=== PATIENT | female | born 1990 | race Caucasian/White ===

== ENCOUNTER 2024-03-08 14:10 | Inpatient (IN) | payer OTHER ==
[~2024-03-08] VITALS: Ht 165.1 cm; Wt 111.4 kg
[2024-03-10] VITALS (28 sets, daily range): BP systolic 114–160; BP diastolic 56–89; PULSE 67–88; TEMP 97.9–98.2
--- NOTE | 2024-03-10 06:35 | NUR ---
PT AMBULATORY WITH SPOUSE ON UNIT, PT CHANGED INTO HOSPITAL GOWN AND ORIENTED TO ROOM. TOCO AND EFM ON PT FOR MONITORING, THIS RN ORIENTS PT TO LABOR AND DELIVERY PLAN OF CARE AT THE MOMENT. PT REPORTS FEELING IRREGULAR CONTRACTIONS OCCATIONALLY AND HARD TO TIME, PT DENIES PAIN, DENIES VAGINAL BLEEDING/SPOTTING, DENIES LEAKING OF FLUID, AND REPORTS POSITIVE MOVEMENT. EFM SHOWS CATAGORY 1 WITH BASELINE 130'S, MODERATE VARIABILITY, ADEQUATE ACCELS, NO DECELS, AND CTX 6-10 MIN LASTING 120-190 SEC. IV STARTED ON PT RIGHT HAND, PT REPOSITIONED COMFORTABLY, PT VS STABLE, PT AWAKE AND ORIENTED X3
[2024-03-10] MEDS ORDERED: LR 1,000 ML IV SCH ×2 (06:45→07:30)
[2024-03-10] MEDS ORDERED: PRENATAL TABLET PO (06:54)
[2024-03-10] MEDS ORDERED: LR & Oxytocin 500 ML IV SCH (07:30)
[2024-03-10 08:04] LABS: BASO % 0.3 % (0.0-2.0); EOS # 0.2 K/mm3 (0.0-0.7); EOS % 1.6 % (0.0-4.0); GRAN # 8.7 K/mm3 (1.4-6.5); GRAN % 73.9 % (42.2-75.2); HEMATOCRIT 37.1 % (37.0-47.0); HEMOGLOBIN 13.1 g/dl (12.5-16.0); LYMPH # 1.7 K/mm3 (1.2-3.4); LYMPH % 14.6 % (20.0-51.0); MEAN CELL VOLUME 85 fl (80.0-100.0); MEAN CORPUSCULAR HEMOGLOBIN 30 pg (27-31); MEAN CORPUSCULAR HGB CONC 35 g/dl (33.0-37.0); MEAN PLATELET VOLUME 10.5 fl (7.4-10.4); MONO # 1.1 K/mm3 (0.1-0.6); MONO % 8.9 % (1.7-9.3); PLATELET COUNT 231 K/mm3 (130-400); RED BLOOD COUNT 4.39 M/mm3 (4.10-5.30); REDCELL DISTRIBUTION WIDTH-CV 12.7 % (11.5-14.5)
[2024-03-10] MEDS ORDERED: ROPivacaine PF 0.2% 200 ML IV ONE (09:45)
--- NOTE | 2024-03-10 10:08 | NUR ---
0955 ALISE SANTACRUZ AT PT BEDSIDE, PT SITTING AT EDGE OF BED SITTING UPRIGHT, BEDSIDE TABLE CLEANED FOR EDPIDURAL SUPPLIES. ALISE SANTACRUZ EDUCATES PT ON EPIDURAL PROCEDURE, PT VS STABLE, EFM CAT 1, PT AWAKE AND ORIENTED X3. SPOUSE SUPPORTIVE AT BEDSIDE. 1008 TEST DOSE ADMINISTERED PER ALISE SANTACRUZ, PT TOLERATED WELL. PT REPOSITIONED WEDGE RIGHT AND COMFORTABLE. PT STABLE AND AWAKE AND ORIENTED X3. THIS RN REMAINS AT PT BEDSIDE TO MONITOR.
[2024-03-10] MEDS ORDERED: Naloxone 0.4 MG/ML VIAL IV PRN ×2 (10:30→12:15)
[2024-03-10] MEDS ORDERED: diphenhydrAMINE 25 MG CAP PO PRN (10:30)
[2024-03-10] MEDS ORDERED: Ondansetron 4 MG/2 ML VIAL IV PRN (10:30)
[2024-03-10] MEDS ORDERED: ePHEDrine 50 MG/10 ML VIAL IV PRN (10:30)
[2024-03-10] MEDS ORDERED: diphenhydrAMINE 50 MG/ML 1 ML VIAL IV PRN (10:30)
--- NOTE | 2024-03-10 11:58 | NUR ---
1158 SVE PER THIS RN /+3. DUE TO BABY'S LOW STATION THIS RN STOPS PITOCIN. CHARGE NURSE, NURSERY NURSE, AND NOTIFIED. ROOM AND BED SET FOR DELIVERY, PT SPOUSE AT BEDSIDE, PT IN PUSHING POSITION IN [facility]. PT VS STABLE, AWAKE AND ORIENTED X3, FHR BASELINE 125'S, NO ACCELS, AUDIBLE EARLY DECELS 1202 AT PT BEDSIDE, BED BROKEN DOWN FOR DELIVERY, CHARGE NURSE AND NURSERY NURSE IN ROOM. PT BEGINS PUSHING 1204 OF VIABLE MALE PER . CORD CLAMPED AND CUT PER , BABY MOVED TO MATERNAL CHEST AND CARE ASSUMED BY NURSERY. 1206 OF PLACENTA AND 2ND DEGREE LACERATION REPAIR BEGUN PER . PT VS STABLE, AWAKE AND ORIENTED X3. PITOCIN BEGAN PER PROCOL. PT MODERATE AMOUNT OF BLEEDING SO THIS RN MASSAGES PT FUNDUS WITH , FUNDUS FIRM DOWN 1. 1210 ROOM CLEANED AFTER DELIVERY. PT VS STABLE, AWAKE AND ORIENTED X3, FUNDUS FIRM D1, SCANT LOCHIA, ICE PACK PAD PLACED ON PT PERINEUM.
[2024-03-10] MEDS ORDERED: Witch Hazel 50% Pads Bulk TUB TP PRN (12:15)
[2024-03-10] MEDS ORDERED: Loratadine 10 MG TAB PO PRN (12:15)
[2024-03-10] MEDS ORDERED: Measles/Mumps/Rubella Virus Vaccine Live w Diluent 0.5 ML VIAL SQ SCH (12:15)
[2024-03-10] MEDS ORDERED: Phenylephrine/Mineral Oil/Petrolatum 57 GM TUBE RC PRN (12:15)
[2024-03-10] MEDS ORDERED: oxyCODONE 5 MG TAB PO PRN (12:15)
[2024-03-10] MEDS ORDERED: Magnes Hydrox (MOM) 80 MG/ML 30 ML CUP PO PRN (12:15)
[2024-03-10] MEDS ORDERED: Mag/Al Hydrox/Simeth Susp 30 ML CUP PO PRN (12:15)
[2024-03-10] MEDS ORDERED: Acetaminophen 500 MG TAB PO PRN (12:15)
[2024-03-10] MEDS ORDERED: Ibuprofen 800 MG TAB PO SCH (12:15)
[2024-03-10] MEDS ORDERED: Sennosides/Docusate 8.6-50 MG TAB PO SCH (17:00)
[2024-03-10] MEDS ORDERED: MOTRIN 800800 MG/TAB PO (20:37)
[2024-03-10] MEDS ORDERED: traZODone 50 MG TAB PO PRN (21:00)
[2024-03-11 00:30] VITALS: BP 122/89; PULSE 62; TEMP 98.2
[2024-03-11 08:20] VITALS: BP 137/74; PULSE 78; TEMP 98.2
--- NOTE | 2024-03-11 11:22 | NUR ---
Initial visit; Hearing Screening in Process, Plant Equipment Engineer left card offering congratulations and God's blessings for the of their son and information regarding the availability of Spiritual Care at our hospital.
--- NOTE | 2024-03-11 14:00 | NUR ---
ALL DC EDUCATION REVIEWED INCLUDING FOLLOW UP APPOINTMENTS AND MEDICATIONS. PT PLANS TO FOLLOW UP WITH ORIGINAL OB IN [facility] AND HAS A 6 WK APPT ALREADY SCHEDULED. WILL ALSO FOLLOW UP IN [place] IN 1-2 DAYS. PT TO RETURN TO FOR REPEAT HEARING SCREEN FOR INFANT AND IS AWARE OF DATE AND TIME. DENIES FURTHER QUESTIONS OR CONCERNS. ALL BELONGINGS ACCOUNTED FOR. AMBULATORY FROM UNIT IN STABLE CONDITION.
== END 2024-03-11 14:00 | disposition home or self-care (01) | DRG 807 ==
LOC: LDR 03-10 06:25 → OB 03-10 12:10
PROVIDERS: ADMIT Obstetrics & Gynecology
PROC: 10E0XZZ Delivery of Products of Conception, External Approach (ICD-10-PCS; principal; 2024-03-10)
PROC: 0KQM0ZZ Repair Perineum Muscle, Open Approach (ICD-10-PCS; 2024-03-10)
PROC: 3E033VJ Introduction of Other Hormone into Peripheral Vein, Percutaneous Approach (ICD-10-PCS; 2024-03-10)
PROC: 10907ZC Drainage of Amniotic Fluid, Therapeutic from Products of Conception, Via Natural or Artificial Opening (ICD-10-PCS; 2024-03-10)
DX: O48.0 Post-term pregnancy (principal); Z37.0 Single live birth; Z3A.40 40 weeks gestation of pregnancy; O69.89X0 Labor and delivery complicated by other cord complications, not applicable or unspecified; O99.214 Obesity complicating childbirth; O70.1 Second degree perineal laceration during delivery; O69.81X0 Labor and delivery complicated by cord around neck, without compression, not applicable or unspecified; Z23 Encounter for immunization
CPT/HCPCS: J2590; J2795; J7120